=== PATIENT | female | born 1965 | race Caucasian/White ===

== ENCOUNTER 2016-12-08 19:29 | Emergency (ER) | payer MEDICAID ==
--- NOTE | 2016-12-08 20:44 | ER Document Report ---
HPI - HPI Patient complains to provider of: suture popped Onset: This afternoon Onset/Duration: Sudden Quality of pain: Achy Severity: Severe Pain Level: 5 Context: Patient presents to the emergency department with left palm pain. Patient reports she just had carpal tunnel surgery on Saturday. Today she tripped over her feet and landed on her out stretched palm. She is worried that she has popped a couple of stitches. Patient has full range of motion no weakness no active bleeding noted. She reports area was bleeding but has stopped. Associated Symptoms: None Exacerbated by: Denies Relieved by: Denies Similar symptoms previously: Yes Recently seen / treated by doctor: Yes - REPRODUCTIVE Reproductive: DENIES: : - DERM Skin Color: Normal, [place] Past Medical History - General Information source: Patient - Social History Smoking Status: Unknown if Ever Smoked Cigarette use (# per day): No Frequency of alcohol use: None Drug Abuse: None Lives with: Family Family History: Reviewed & Not Pertinent Patient has suicidal ideation: No Patient has homicidal ideation: No Renal/ Medical History: Denies: Hx Peritoneal Dialysis GI Medical History: Reports: Hx Gastroesophageal Reflux Disease Musculoskeltal Medical History: Reports Hx Muscle Spasm Past Surgical History: Reports: Hx Abdominal Surgery - lower intestine, Hx Hysterectomy, Hx Orthopedic Surgery - right knee/right hand - Immunizations Hx Diphtheria, Pertussis, Tetanus Vaccination: Yes Vertical Provider Document - CONSTITUTIONAL Agree With Documented VS: Yes Exam Limitations: No Limitations General Appearance: WD/WN, No Apparent Distress - INFECTION CONTROL TRAVEL OUTSIDE OF THE [place] IN LAST 30 DAYS: No - HEENT HEENT: Atraumatic, Normocephalic - NECK Neck: Supple - RESPIRATORY Respiratory: No Respiratory Distress O2 Sat by Pulse Oximetry: 96 - CARDIOVASCULAR Cardiovascular: Regular Rate - MUSCULOSKELETAL/EXTREMETIES Musculoskeletal/Extremeties: MAEW, FROM, Tender - Left palm tender to palpation recent surgical site noted. [address] with slight opening ~ 0.5-1mm proximal. no active bleeding, good supportability engineer - NEURO Level of Consciousness: Awake, Alert, Appropriate Motor/Sensory: No Motor Deficit - DERM Integumentary: Warm, Dry Course - Re-evaluation Re-evalutation: 12/08/16 Sutures seem to be intact but will place Steri-Strips for patient comfort. Patient was instructed on the importance of follow-up with her surgeon on [place]. She verbalized understanding. Patient has pain medication at home. Patient has full range of motion brisk cap refill site looks benign - Vital Signs Vital signs: Temp Pulse Resp BP Pulse Ox 98.0 F 78 19 111/70 96 12/08/16 20:00 12/08/16 20:00 12/08/16 20:00 12/08/16 20:00 12/08/16 20:00 Procedures - Laceration/Wound Repair Left palm Wound length (cm): 3 Wound's Depth, Shape: Superficial, Linear Laceration pre-procedure: Shur-Clens applied Wound Repaired With: Steri-strips Number of Sutures: 0 - 5 steri strips placed by ha reyes LPN Hands front picture: 1 - [address], slight opening noted 0.5-1 mm, no active bleeding, ecchymosis noted to entire palm. good supportability engineer, brisk cap refill Discharge - Discharge Clinical Impression: left palm injury, suture site reinforcement Condition: Stable Disposition: HOME, SELF-CARE Instructions: Care of Steri-Strip Closure ([facility]) Additional Instructions: *You have been treated for left palm injury, suture site reinforcement *Take your pain medication as prescribed *Monitor the site for signs of infection such as increasing pain, redness, swelling, warmth *Keep the area clean *Follow up with your surgeon on Saturday for recheck *Return to ED for signs of infection, worsening condition, changes, needs Referrals: THU SAMUEL PA-C [Primary Care Provider] - Follow up as needed
[2016-12-08 21:56] VITALS: BP 108/78
== END 2016-12-08 21:55 | disposition home or self-care (01) ==
LOC: ER 19:29
PROC: 0HQGXZZ Repair Left Hand Skin, External Approach (ICD-10-PCS; principal; 2016-12-08)
DX: S69.92XA Unspecified injury of left wrist, hand and finger(s), initial encounter (principal); W19.XXXA Unspecified fall, initial encounter
CPT/HCPCS: 99283

== ENCOUNTER 2017-01-01 10:12 | Inpatient (IN) | payer MEDICAID ==
[2016-12-24 13:33] LABS: HEMATOCRIT 40.3 % (36.0-47.0); HEMOGLOBIN 13.3 g/dL (12.0-15.5); HGB HCT DIFFERENCE -0.4; MEAN CORPUSCULAR HEMOGLOBIN 26.1 pg (27.0-33.4); MEAN CORPUSCULAR HGB CONC 32.9 g/dL (32.0-36.0); MEAN CORPUSCULAR VOLUME 79 fl (80-97); RED BLOOD COUNT 5.08 10^6/uL (3.72-5.28); RED CELL DISTRIBUTION WIDTH 15.9 % (11.5-14.0); WHITE BLOOD COUNT 8.3 10^3/uL (4.0-10.5)
[2016-12-24 13:56] LABS: BLOOD UREA NITROGEN 17 mg/dL (7-20); CALCIUM 10.2 mg/dL (8.4-10.2); CREATININE RESULT 0.78 mg/dL (0.52-1.25); GLUCOSE 117 mg/dL (75-110)
[2016-12-24 13:57] LABS: ALANINE AMINOTRANSFERASE 53 U/L (9-52); ALBUMIN 4.1 g/dL (3.5-5.0); ALKALINE PHOSPHATASE 155 U/L (38-126); ANION GAP 11 (5-19); ASPARTATE AMINO TRANSFERASE 32 U/L (14-36); BILIRUBIN,DIRECT 0.3 mg/dL (0.0-0.4); BILIRUBIN,TOTAL 0.8 mg/dL (0.2-1.3); CARBON DIOXIDE 31 mmol/L (22-30); CHLORIDE 99 mmol/L (98-107); POTASSIUM 4.7 mmol/L (3.6-5.0); SODIUM 141.1 mmol/L (137-145); TOTAL PROTEIN 7.3 g/dL (6.3-8.2)
--- NOTE | 2016-12-24 20:33 | EKG REPORT ---
SEVERITY:- NORMAL ECG - SINUS RHYTHM : Confirmed by: Taya Carmona 24-Dec-2016 20:32:01
[~2017-01-01 10:12] MED LIST: ACETAMINOPHEN 325 MG TABLET PO PRN; BUPIVACAINE HCL 0.25 % INJ/PF (2.5 MG/1 ML) 30 ML VIAL ONE; CIPROFLOXACIN 400 MG/D5W RTU 400 MG/200 ML RTUPB IV PRN; GLYCOPYRROLATE INJ 0.4 MG/2 ML VIAL ONE; LACTATED RINGERS 1000 ML IV PRN; LIDOCAINE 0.5% INJ-PF (5 MG/ML) 50 ML SDV SUBCUT PRN; LIDOCAINE 2% INJ-PF (20 MG/ML) 10 ML AMPUL ONE; METOCLOPRAMIDE HCL INJ/PF 10 MG/2 ML SDV ONE; NEOSTIGMINE METHYLSULFATE 10 MG/10 ML VIAL ONE; ONDANSETRON HCL INJ/PF 4 MG/2 ML SDV ONE; ROCURONIUM BROMIDE INJ 50 MG/5 ML VIAL IV ONE; SUCCINYLCHOLINE CHLORIDE INJ 200 MG/10 ML VIAL ONE
[2017-01-01] MEDS ORDERED: FENTANYL CITRATE INJ/PF 250 MCG/5 ML AMPULE ONE (13:46)
[2017-01-01] MEDS ORDERED: MORPHINE SULFATE 10 MG/ML INJ ONE (13:47)
[2017-01-01] MEDS ORDERED: ACETAMINOPHEN 100 ML IV ONE (13:47)
[2017-01-01] MEDS ORDERED: MIDAZOLAM 2 MG/2 ML INJ ONE (13:47)
[2017-01-01] MEDS ORDERED: PROPOFOL INJ 200 MG/20 ML VIAL IV ONE (13:47)
--- NOTE | 2017-01-01 16:21 | RADIOLOGY REPORT (SQ) ---
EXAM DESCRIPTION: CHOLANGIOGRAM OPERATIVE COMPLETED DATE/TIME: 01/01/2017 4:06 pm REASON FOR STUDY: LAPROSCOPIC CHOLANGIOGRAM K80.00 CALCULUS OF GALLBLADDER W ACUTE CHOLECYST W/O OB STRUC COMPARISON: None. FLUOROSCOPY TIME: 0.9 minutes Cine flouroscopic images saved to PACS. TECHNIQUE: Cinegraphic images were obtained from an intraoperative cholangiogram. LIMITATIONS: None. FINDINGS: There is opacification of the bile ducts, cystic duct remnants and second portion of the d uodenum without evidence of fixed filling defect or significant extravasation. IMPRESSION: INTRAOPERATIVE CHOLANGIOGRAM. COMMENT: Quality ID [id number]: Final reports for procedures using fluoroscopy that document radiation exp osure indices, or exposure time and number of fluorographic images (if radiation exposure indices are not available) TECHNICAL DOCUMENTATION: JOB ID: [id number] [employer]- All Rights Reserved
[2017-01-01 16:44] LABS: HEMATOCRIT 36.1 % (36.0-47.0); HEMOGLOBIN 11.9 g/dL (12.0-15.5); HGB HCT DIFFERENCE -0.4; MEAN CORPUSCULAR HEMOGLOBIN 26.1 pg (27.0-33.4); MEAN CORPUSCULAR VOLUME 79 fl (80-97); RED BLOOD COUNT 4.55 10^6/uL (3.72-5.28); WHITE BLOOD COUNT 7.3 10^3/uL (4.0-10.5)
[2017-01-01] MEDS: MORPHINE SULFATE 10 MG/ML INJ ONE ×2 (18:05→18:20)
[2017-01-01] MEDS ORDERED: MORPHINE SULFATE 10 MG/ML INJ IV PRN (18:36)
[2017-01-01] MEDS ORDERED: DEXTROSE 40% GEL 15 GM TUBE PO PRN ×2 (18:36)
[2017-01-01] MEDS ORDERED: DEXTROSE 50%-WATER 25 GM/50 ML DISP.SYRIN IV PRN ×2 (18:36)
[2017-01-01] MEDS ORDERED: GLUCAGON,HUMAN RECOMB 1 MG INJ SUBCUT PRN (18:36)
[2017-01-01] MEDS ORDERED: BACLOFEN 20 MG TABLET PO PRN (18:42)
[2017-01-01] MEDS ORDERED: PHARMACY COMMUNICATION ORDER MC NR (18:45)
[2017-01-01 21:04] LABS: ABSOLUTE LYMPHOCYTES (AUTO) 0.9 10^3/uL (0.5-4.7); ABSOLUTE MONOCYTES (AUTO) 0.4 10^3/uL (0.1-1.4); ABSOLUTE NEUT (AUTO) 9.1 10^3/uL (1.7-8.2); BASOPHILS % (AUTO) 0.3 % (0-2); EOSINOPHILS % (AUTO) 0.1 % (0-6); HEMOGLOBIN 11.9 g/dL (12.0-15.5); HGB HCT DIFFERENCE -1.3; MEAN CORPUSCULAR HEMOGLOBIN 25.6 pg (27.0-33.4); MEAN CORPUSCULAR HGB CONC 32.3 g/dL (32.0-36.0); MEAN CORPUSCULAR VOLUME 79 fl (80-97); MONOCYTES % (AUTO) 3.5 % (3-13); RED BLOOD COUNT 4.67 10^6/uL (3.72-5.28); RED CELL DISTRIBUTION WIDTH 15.9 % (11.5-14.0); SEGMENTED NEUTROPHILS % (AUTO) 87.1 % (42-78); WHITE BLOOD COUNT 10.5 10^3/uL (4.0-10.5)
--- NOTE | 2017-01-01 21:10 | PDOC PROGRESS REPORT ---
Subjective Progress Note for:: 01/01/17 Subjective:: Feels well other than pain at the right upper quadrant incision. No chest pain no shortness of breath. Physical Exam Vital Signs: Temp Pulse Resp BP Pulse Ox 98.2 F 69 18 138/77 H 92 01/01/17 19:20 01/01/17 19:20 01/01/17 19:20 01/01/17 19:20 01/01/17 19:20 Intake & Output 12/31/16 01/01/17 01/02/17 06:59 06:59 06:59 Intake Total 3550 Output Total 830 Balance 2720 Weight 158.9 kg General appearance: PRESENT: no acute distress, cooperative Respiratory exam: PRESENT: clear to auscultation yoshi Cardiovascular exam: PRESENT: RRR GI/Abdominal exam: PRESENT: other - Soft, nondistended, mild tenderness at the right upper quadrant without peritoneal signs. NG output is none. Results Laboratory Results: 01/01/17 20:45 01/01/17 10:35 01/01/17 01/01/17 01/01/17 10:35 16:25 16:30 WBC 7.3 RBC 4.55 Hgb 11.9 L Hct 36.1 MCV 79 L MCH 26.1 L MCHC 33.0 RDW 16.0 H Plt Count 191 Seg Neutrophils % Lymphocytes % Monocytes % Eosinophils % Basophils % Absolute Neutrophils Absolute Lymphocytes Absolute Monocytes Absolute Eosinophils Absolute Basophils Potassium 4.5 Blood Type O NEGATIVE Antibody Screen NEGATIVE 01/01/17 20:45 WBC 10.5 RBC 4.67 Hgb 11.9 L Hct 37.0 MCV 79 L MCH 25.6 L MCHC 32.3 RDW 15.9 H Plt Count 202 Seg Neutrophils % 87.1 H Lymphocytes % 9.0 L Monocytes % 3.5 Eosinophils % 0.1 Basophils % 0.3 Absolute Neutrophils 9.1 H Absolute Lymphocytes 0.9 Absolute Monocytes 0.4 Absolute Eosinophils 0.0 Absolute Basophils 0.0 Potassium Blood Type Antibody Screen Impressions: Cholangiogram 01/01/17 00:00 IMPRESSION: INTRAOPERATIVE CHOLANGIOGRAM. Assessment & Plan - Diagnosis (1) Cholecystitis Is this a current diagnosis for this admission?: YesPlan: Status post laparoscopic cholecystectomy converted to open cholecystectomy for perioperative bleed. Patient looks good postoperatively. DC NG tube. Will DC Kaplan catheter tomorrow morning. Change from morphine to Dilaudid for pain control. Will also add Toradol. Patient has no evidence of active bleeding and hemostasis was excellent at the end of the case. However will hold the Lovenox.
--- NOTE | 2017-01-01 21:18 | Operative Report ---
Operative Report DATE OF SURGERY: 01/01/17 PREOPERATIVE DIAGNOSIS: Chronic cholecystitis, cholelithiasis POSTOPERATIVE DIAGNOSIS: Chronic cholecystitis, cholelithiasis OPERATION: Attempted laparoscopic cholecystectomy, conversion to open cholecystectomy. Intraoperative cholangiogram SURGEON: NETTA CHATMAN ANESTHESIA: GA TISSUE REMOVED OR ALTERED: gallbladder COMPLICATIONS: Gallbladder bed bleed ESTIMATED BLOOD LOSS: 600 cc INTRAOPERATIVE FINDINGS: Contracted thickened wall gallbladder with large gallstones with indistinct plane between the gallbladder and the liver. Enlarged cystic duct but normal common bile and hepatic ducts with no obstructive stones. Free flow of contrast into the duodenum. PROCEDURE: Informed consent was obtained. Patient was brought to the operating room placed operating table in supine position. After satisfactory induction of general anesthesia, patient's abdomen was prepped and draped in usual sterile fashion. A supraumbilical midline incision was made and dissection carried down thru the fascia and the peritoneal cavity entered without difficulty. Hernandez trocar was inserted. Pneumoperitoneum produced good patient toleration. 5 mm trocar was placed in the subxiphoid location.Two 5 mm trochars were placed in the right subcostal location. The gallbladder appeared contracted and wall appeared thickened. Gallbladder had palpable large stones. The gallbladder was grasped and retracted anteriorly and cephalad. The infundibulum of the gallbladder was grasped and retracted laterally and inferiorly thus exposing a scarred calot's triangle. The lymphatics associated with an enlarged close node was taken by clipping and dividing. There was adhesion between the midportion of the gallbladder and the liver that was inflamed and thickened. this area was attempted to be taken down with electrocautery but there was some bleeding requiring clip placement to control the bleeding. The cystic duct gallbladder junction was clearly identified. The cystic duct appeared dilated. Cystic artery was clearly identified. The cystic duct was partially transected near the gallbladder and a cholangiocatheter was inserted and clipped in place. Intraoperative cholangiography was performed which demonstrated normal-appearing common bile duct, common hepatic duct, right and left hepatic ducts. There was free flow of contrast into the duodenum. The cholangiocatheter was removed. The cystic duct was clipped and divided. Cystic artery was likewise taken. There was a posterior branch of the cystic artery which was also clipped and divided. The gallbladder was taken off the gallbladder bed using the hook electrocautery technique. The plane between the gallbladder and the liver was indistinct making this portion of the procedure difficult. At the top of the gallbladder the inflammatory process appeared to be worse. The gallbladder was almost completely taken off the liver when I encountered brisk venous bleeding from the gallbladder bed. Initial attempt at control with compression yielded only partial control. There appeared to be a visible vein with brisk bleeding and attempt at control with surgical clips failed. I felt that electrocautery could potentially make bleeding worse. The gallbladder was stuffed at the gallbladder bed to tamponade the bleeding and the case was converted to an open procedure. A right subcostal incision was made and dissection carried down and the peritoneal cavity was entered without difficulty. Lap sponges were placed at the gallbladder bed to control the bleed. Bookwalter retractor was used. Trochars were all removed. After appropriate positioning of the Bookwalter to obtain optimal exposure, the surgical sponges were removed and the gallbladder bed was inspected. There was an exposed vein in the superficial liver parenchyma at the gallbladder bed with brisk bleeding. Compression was used to control the bleed and Prolene sutures were used to ligate the bleeding vein with resultant control of the bleed. There was slight oozing at the site that was controlled with Surgicel and compression. The gallbladder was detached from the gallbladder bed and submitted to pathology. At the end of the case there was no evidence of active bleeding. Sponge, needle and instrument counts were all correct. Blood clots were evacuated. hemostasis appeared excellent. The fascia was closed with running PDS sutures in 2 layers. Skin was closed with aneta. The Hernandez trocar site fascial defect was closed with interrupted Vicryl sutures. All skin incisions were closed with aneta. Marcaine was injected at the incision sites. Patient tolerated procedure well and was taken to the recovery area in stable condition.
[2017-01-01] MEDS: GABAPENTIN 300 MG CAPSULE PO SCH (21:50)
[2017-01-01] MEDS: TRAMADOL HCL 50 MG TABLET PO SCH (21:50)
[2017-01-01] MEDS ORDERED: DULOXETINE HCL 30 MG CAPSULE.DR PO PRN (22:00)
[2017-01-01] MEDS: ONDANSETRON HCL INJ/PF 4 MG/2 ML SDV IV PRN (22:01)
[2017-01-02] MEDS: NORMAL SALINE 1000 ML 1,000 ML IV PRN ×2 (00:31→22:06)
[2017-01-02] MEDS: HYDROMORPHONE HCL INJ/PF 2 MG/ML AMPULE IV PRN ×4 (00:31→22:06)
[2017-01-02 07:14] LABS: HEMATOCRIT 34.7 % (36.0-47.0); HEMOGLOBIN 11.6 g/dL (12.0-15.5); HGB HCT DIFFERENCE 0.1; MEAN CORPUSCULAR HEMOGLOBIN 26.3 pg (27.0-33.4); MEAN CORPUSCULAR HGB CONC 33.4 g/dL (32.0-36.0); MEAN CORPUSCULAR VOLUME 79 fl (80-97); RED CELL DISTRIBUTION WIDTH 15.8 % (11.5-14.0); WHITE BLOOD COUNT 9.1 10^3/uL (4.0-10.5)
[2017-01-02 07:31] LABS: ALANINE AMINOTRANSFERASE 75 U/L (9-52); ALKALINE PHOSPHATASE 106 U/L (38-126); ANION GAP 8 (5-19); ASPARTATE AMINO TRANSFERASE 63 U/L (14-36); BILIRUBIN,DIRECT 0.3 mg/dL (0.0-0.4); BILIRUBIN,TOTAL 0.8 mg/dL (0.2-1.3); BLOOD UREA NITROGEN 13 mg/dL (7-20); CALCIUM 8.9 mg/dL (8.4-10.2); CARBON DIOXIDE 26 mmol/L (22-30); CHLORIDE 104 mmol/L (98-107); CREATININE RESULT 0.62 mg/dL (0.52-1.25); GLUCOSE 136 mg/dL (75-110); POTASSIUM 4.8 mmol/L (3.6-5.0); TOTAL PROTEIN 5.5 g/dL (6.3-8.2)
[2017-01-02] MEDS: FUROSEMIDE 20 MG TABLET PO SCH (08:01)
[2017-01-02] MEDS: KETOROLAC TROMETHAMINE INJ/PF 30 MG/1 ML SDV IV PRN (08:01)
[2017-01-02] MEDS: ONDANSETRON HCL INJ/PF 4 MG/2 ML SDV IV PRN ×3 (08:16→18:33)
--- NOTE | 2017-01-02 09:28 | PDOC PROGRESS REPORT ---
Subjective Progress Note for:: 01/02/17 Subjective:: Feels well. Pain better. Physical Exam Vital Signs: Temp Pulse Resp BP Pulse Ox 98.4 F 81 18 113/59 L 99 01/02/17 08:00 01/02/17 08:00 01/02/17 08:00 01/02/17 08:00 01/02/17 08:00 Intake & Output 01/01/17 01/02/17 01/03/17 06:59 06:59 06:59 Intake Total 4803 Output Total 1630 Balance 3173 Weight 158.9 kg General appearance: PRESENT: no acute distress, cooperative Respiratory exam: PRESENT: clear to auscultation yoshi Cardiovascular exam: PRESENT: RRR GI/Abdominal exam: PRESENT: other - Soft, nondistended, mild tenderness along the incision site. 5 mm trocar site with some serous drainage. Extremities exam: PRESENT: other - No swelling and no tenderness Neurological exam: PRESENT: alert, awake Results Laboratory Results: 01/02/17 06:34 01/02/17 06:34 01/01/17 01/01/17 01/01/17 10:35 16:25 16:30 WBC 7.3 RBC 4.55 Hgb 11.9 L Hct 36.1 MCV 79 L MCH 26.1 L MCHC 33.0 RDW 16.0 H Plt Count 191 Seg Neutrophils % Lymphocytes % Monocytes % Eosinophils % Basophils % Absolute Neutrophils Absolute Lymphocytes Absolute Monocytes Absolute Eosinophils Absolute Basophils Sodium Potassium 4.5 Chloride Carbon Dioxide Anion Gap BUN Creatinine Est GFR ( Amer) Est GFR (Non-Af Amer) Glucose Calcium Total Bilirubin AST ALT Alkaline Phosphatase Total Protein Albumin Blood Type O NEGATIVE Antibody Screen NEGATIVE 01/01/17 01/02/17 01/02/17 20:45 06:34 06:34 WBC 10.5 9.1 RBC 4.67 4.40 Hgb 11.9 L 11.6 L Hct 37.0 34.7 L MCV 79 L 79 L MCH 25.6 L 26.3 L MCHC 32.3 33.4 RDW 15.9 H 15.8 H Plt Count 202 237 Seg Neutrophils % 87.1 H Lymphocytes % 9.0 L Monocytes % 3.5 Eosinophils % 0.1 Basophils % 0.3 Absolute Neutrophils 9.1 H Absolute Lymphocytes 0.9 Absolute Monocytes 0.4 Absolute Eosinophils 0.0 Absolute Basophils 0.0 Sodium 138.0 Potassium 4.8 Chloride 104 Carbon Dioxide 26 Anion Gap 8 BUN 13 Creatinine 0.62 Est GFR ( Amer) > 60 Est GFR (Non-Af Amer) > 60 Glucose 136 H Calcium 8.9 Total Bilirubin 0.8 AST 63 H ALT 75 H Alkaline Phosphatase 106 Total Protein 5.5 L Albumin 3.0 L Blood Type Antibody Screen Impressions: Cholangiogram 01/01/17 00:00 IMPRESSION: INTRAOPERATIVE CHOLANGIOGRAM. Assessment & Plan - Diagnosis (1) Cholecystitis Is this a current diagnosis for this admission?: YesPlan: Status post laparoscopic cholecystectomy converted to open cholecystectomy for perioperative bleed. Patient looks good postoperatively. DC Kaplan catheter. Ambulate patient. Await bowel function.
[2017-01-02] MEDS ORDERED: (PENDING PHARMACY ID) (Esomeprazole Magnesium [Nexium] 20 MG) PO SCH (10:00)
[2017-01-02] MEDS: CIPROFLOXACIN 400 MG/D5W RTU 200 ML IV SCH ×2 (10:32→22:06)
[2017-01-02] MEDS: LANSOPRAZOLE 15 MG TAB.RAP.DR PO SCH (10:32)
[2017-01-02] MEDS: ASPIRIN 81 MG TABLET, ENT COATED PO SCH (10:32)
[2017-01-02] MEDS: TRAMADOL HCL 50 MG TABLET PO SCH ×4 (10:32→22:07)
[2017-01-02] MEDS: GABAPENTIN 300 MG CAPSULE PO SCH ×4 (10:33→22:07)
--- NOTE | 2017-01-02 17:04 | PDOC PROGRESS REPORT ---
Subjective Progress Note for:: 01/02/17 Subjective:: had nausea and did not ambulate today. d/w pt placing her on lovenox but she declines. But will try ambulation with assist. Physical Exam Vital Signs: Temp Pulse Resp BP Pulse Ox 98.4 F 81 18 113/59 L 99 01/02/17 08:00 01/02/17 08:00 01/02/17 08:00 01/02/17 08:00 01/02/17 08:00 Intake & Output 01/01/17 01/02/17 01/03/17 06:59 06:59 06:59 Intake Total 4803 Output Total 1630 Balance 3173 Weight 158.9 kg General appearance: PRESENT: no acute distress, cooperative Cardiovascular exam: PRESENT: RRR GI/Abdominal exam: PRESENT: other - soft, nd, ruq tenderness without peritoneal signs. drainage from lateral trocar site less Results Laboratory Results: 01/02/17 06:34 01/02/17 06:34 01/01/17 01/01/17 01/01/17 16:25 16:30 20:45 WBC 7.3 10.5 RBC 4.55 4.67 Hgb 11.9 L 11.9 L Hct 36.1 37.0 MCV 79 L 79 L MCH 26.1 L 25.6 L MCHC 33.0 32.3 RDW 16.0 H 15.9 H Plt Count 191 202 Seg Neutrophils % 87.1 H Lymphocytes % 9.0 L Monocytes % 3.5 Eosinophils % 0.1 Basophils % 0.3 Absolute Neutrophils 9.1 H Absolute Lymphocytes 0.9 Absolute Monocytes 0.4 Absolute Eosinophils 0.0 Absolute Basophils 0.0 Sodium Potassium Chloride Carbon Dioxide Anion Gap BUN Creatinine Est GFR ( Amer) Est GFR (Non-Af Amer) Glucose Calcium Total Bilirubin AST ALT Alkaline Phosphatase Total Protein Albumin Blood Type O NEGATIVE Antibody Screen NEGATIVE 01/02/17 01/02/17 06:34 06:34 WBC 9.1 RBC 4.40 Hgb 11.6 L Hct 34.7 L MCV 79 L MCH 26.3 L MCHC 33.4 RDW 15.8 H Plt Count 237 Seg Neutrophils % Lymphocytes % Monocytes % Eosinophils % Basophils % Absolute Neutrophils Absolute Lymphocytes Absolute Monocytes Absolute Eosinophils Absolute Basophils Sodium 138.0 Potassium 4.8 Chloride 104 Carbon Dioxide 26 Anion Gap 8 BUN 13 Creatinine 0.62 Est GFR ( Amer) > 60 Est GFR (Non-Af Amer) > 60 Glucose 136 H Calcium 8.9 Total Bilirubin 0.8 AST 63 H ALT 75 H Alkaline Phosphatase 106 Total Protein 5.5 L Albumin 3.0 L Blood Type Antibody Screen Impressions: Cholangiogram 01/01/17 00:00 IMPRESSION: INTRAOPERATIVE CHOLANGIOGRAM. Assessment & Plan - Diagnosis (1) Cholecystitis Is this a current diagnosis for this admission?: YesPlan: Status post laparoscopic cholecystectomy converted to open cholecystectomy for perioperative bleed.looks ok but must ambulate. will try again this evening. await bowel function.
[2017-01-03] MEDS: ONDANSETRON HCL INJ/PF 4 MG/2 ML SDV IV PRN ×4 (00:37→15:54)
[2017-01-03] MEDS: KETOROLAC TROMETHAMINE INJ/PF 30 MG/1 ML SDV IV PRN ×2 (07:45→14:31)
[2017-01-03] MEDS: FUROSEMIDE 20 MG TABLET PO SCH (07:45)
[2017-01-03] MEDS: HYDROMORPHONE HCL INJ/PF 2 MG/ML AMPULE IV PRN ×3 (08:04→15:54)
--- NOTE | 2017-01-03 08:34 | PDOC PROGRESS REPORT ---
Subjective Progress Note for:: 01/03/17 Subjective:: Feels better. Passing flatus. Hungry. Physical Exam Vital Signs: Temp Pulse Resp BP Pulse Ox 98.2 F 82 16 118/57 L 100 01/03/17 07:41 01/03/17 07:41 01/03/17 07:41 01/03/17 07:41 01/03/17 07:41 Intake & Output 01/02/17 01/03/17 01/04/17 06:59 06:59 06:59 Intake Total 4803 2361 Output Total 1630 950 Balance 3173 1411 Weight 158.9 kg 158.8 kg General appearance: PRESENT: no acute distress, cooperative Respiratory exam: PRESENT: clear to auscultation yoshi Cardiovascular exam: PRESENT: RRR GI/Abdominal exam: PRESENT: other - Soft, nondistended, mild right upper quadrant abdominal tenderness but improved from yesterday. Results Laboratory Results: 01/02/17 06:34 01/02/17 06:34 Impressions: Cholangiogram 01/01/17 00:00 IMPRESSION: INTRAOPERATIVE CHOLANGIOGRAM. Assessment & Plan - Diagnosis (1) Cholecystitis Is this a current diagnosis for this admission?: YesPlan: Status post laparoscopic cholecystectomy converted to open cholecystectomy for perioperative bleed.looks ok patient feels ready to ambulate today. When ambulating well will start clear liquids. Possible discharge home tomorrow.
[2017-01-03] MEDS: DULOXETINE HCL 30 MG CAPSULE.DR PO SCH (09:48)
[2017-01-03] MEDS: ASPIRIN 81 MG TABLET, ENT COATED PO SCH (09:49)
[2017-01-03] MEDS: TRAMADOL HCL 50 MG TABLET PO SCH ×4 (09:49→21:51)
[2017-01-03] MEDS: CIPROFLOXACIN 400 MG/D5W RTU 200 ML IV SCH ×2 (09:50→21:51)
[2017-01-03] MEDS: LANSOPRAZOLE 15 MG TAB.RAP.DR PO SCH (09:50)
[2017-01-03] MEDS: GABAPENTIN 300 MG CAPSULE PO SCH ×4 (09:50→21:51)
[2017-01-03] MEDS: NORMAL SALINE 1000 ML 1,000 ML IV PRN (14:43)
[2017-01-04] MEDS: HYDROMORPHONE HCL INJ/PF 2 MG/ML AMPULE IV PRN ×2 (03:51→14:50)
[2017-01-04] MEDS ORDERED: OXYCODONE-ACETAMINOPHEN 5-325 MG TABLET PO PRN (08:33)
--- NOTE | 2017-01-04 08:39 | PDOC PROGRESS REPORT ---
Subjective Progress Note for:: 01/04/17 Subjective:: Feels much better. Abdominal pain markedly improved. Ambulated well yesterday. Tolerating liquids. Patient wants to stay till tomorrow however for intermittent IV pain medication for pain control. Physical Exam Vital Signs: Temp Pulse Resp BP Pulse Ox 98.6 F 80 16 120/69 90 L 01/03/17 23:26 01/03/17 23:26 01/03/17 23:26 01/03/17 23:26 01/03/17 23:26 Intake & Output 01/03/17 01/04/17 01/05/17 06:59 06:59 06:59 Intake Total 2361 1650 Output Total 950 Balance 1411 1650 Weight 158.8 kg 160.1 kg General appearance: PRESENT: no acute distress, cooperative Respiratory exam: PRESENT: clear to auscultation yoshi Cardiovascular exam: PRESENT: RRR GI/Abdominal exam: PRESENT: other - Soft, nondistended, minimal tenderness in the right upper quadrant. Wound clean dry and intact with slight bruising. Results Laboratory Results: 01/02/17 06:34 01/02/17 06:34 Impressions: Cholangiogram 01/01/17 00:00 IMPRESSION: INTRAOPERATIVE CHOLANGIOGRAM. Assessment & Plan - Diagnosis (1) Cholecystitis Is this a current diagnosis for this admission?: YesPlan: Status post laparoscopic cholecystectomy converted to open cholecystectomy for perioperative bleed. Patient looks good. Will advance diet. Try Percocet for pain with Dilaudid for breakthrough pain. Probable discharge tomorrow. Continue to encourage ambulation.
[2017-01-04] MEDS: TRAMADOL HCL 50 MG TABLET PO SCH ×4 (09:09→21:34)
[2017-01-04] MEDS: FUROSEMIDE 20 MG TABLET PO SCH (09:09)
[2017-01-04] MEDS: GABAPENTIN 300 MG CAPSULE PO SCH ×4 (09:09→21:34)
[2017-01-04] MEDS: LANSOPRAZOLE 15 MG TAB.RAP.DR PO SCH (09:09)
[2017-01-04] MEDS: CIPROFLOXACIN HCL 500 MG TABLET PO SCH ×2 (09:09→21:34)
[2017-01-04] MEDS: ASPIRIN 81 MG TABLET, ENT COATED PO SCH (09:10)
[2017-01-04] MEDS: DULOXETINE HCL 30 MG CAPSULE.DR PO SCH (09:10)
[2017-01-05 10:17] VITALS: BP 109/53
[2017-01-05] MEDS: GABAPENTIN 300 MG CAPSULE PO SCH (10:23)
[2017-01-05] MEDS: FUROSEMIDE 20 MG TABLET PO SCH (10:24)
[2017-01-05] MEDS: CIPROFLOXACIN HCL 500 MG TABLET PO SCH (10:24)
[2017-01-05] MEDS: TRAMADOL HCL 50 MG TABLET PO SCH (10:24)
[2017-01-05] MEDS: ASPIRIN 81 MG TABLET, ENT COATED PO SCH (10:24)
[2017-01-05] MEDS: LANSOPRAZOLE 15 MG TAB.RAP.DR PO SCH (10:24)
[2017-01-05] MEDS: DULOXETINE HCL 30 MG CAPSULE.DR PO SCH (10:25)
--- NOTE | 2017-01-05 12:23 | DISCHARGE SUMMARY E ---
Discharge Summary NAME: SILKE MANN : 1965 AGE: 51Y ADMITTED: 01/01/2017 DISCHARGED: 01/05/2017 SUMMARY OF HOSPITALIZATION: Patient is a 51-year-old female who was brought to the hospital, and underwent laparoscopic conversion to open cholecystectomy by Dr. Jai Almanza. She had an intraoperative cholangiogram, which was unremarkable, and interpreted as normal filling of the biliary tree with no intraluminal defects or leak. Patient tolerated the procedure well. She had an uneventful postoperative course. She was somewhat slow to mobilize. There were no postoperative complications, however. By the fourth postoperative day she was felt to be ready for discharge home. FINAL DIAGNOSIS: Symptomatic cholelithiasis with cholecystitis, status post laparoscopic conversion to open cholecystectomy by Dr. Roderick Almanza. DISPOSITION: Patient will be discharged home in care of family. Follow up with Dr. Almanza in approximately 1 week for staple removal. Prescription for Percocet provided. She will take a stool softener and resume her preadmission medications. DICTATING PHYSICIAN: SOHAIL RUEDA M.D. [id number] Y#: [id number] ID: [id number] JOB#: [id number] ACCT: [id number] cc:Avelino ANGELO M.D. >
== END 2017-01-05 13:15 | disposition home or self-care (01) | DRG 415 ==
LOC: OROUT 10:12 → 5 12:55
PROVIDERS: ADMIT Surgery; ATTEND Surgery
PROC: 0FJ44ZZ Inspection of Gallbladder, Percutaneous Endoscopic Approach (ICD-10-PCS; 2017-01-01)
PROC: BF0C1ZZ Plain Radiography of Hepatobiliary System, All using Low Osmolar Contrast (ICD-10-PCS; 2017-01-01)
PROC: 0FN40ZZ Release Gallbladder, Open Approach (ICD-10-PCS; 2017-01-01)
PROC: 0D9670Z Drainage of Stomach with Drainage Device, Via Natural or Artificial Opening (ICD-10-PCS; 2017-01-01)
PROC: 0FT40ZZ Resection of Gallbladder, Open Approach (ICD-10-PCS; principal; 2017-01-01 13:00)
DX: K80.10 Calculus of gallbladder with chronic cholecystitis without obstruction (principal); N39.0 Urinary tract infection, site not specified; K91.62 Intraoperative hemorrhage and hematoma of a digestive system organ or structure complicating other procedure; Z68.43 Body mass index [BMI] 50.0-59.9, adult; I25.10 Atherosclerotic heart disease of native coronary artery without angina pectoris; M19.90 Unspecified osteoarthritis, unspecified site; M79.7 Fibromyalgia; G47.30 Sleep apnea, unspecified; K58.9 Irritable bowel syndrome, unspecified; M51.36 Other intervertebral disc degeneration, lumbar region; E66.9 Obesity, unspecified; K82.8 Other specified diseases of gallbladder; Y83.9 Surgical procedure, unspecified as the cause of abnormal reaction of the patient, or of later complication, without mention of misadventure at the time of the procedure; Z88.3 Allergy status to other anti-infective agents; Z88.1 Allergy status to other antibiotic agents; Z88.8 Allergy status to other drugs, medicaments and biological substances; Z88.6 Allergy status to analgesic agent; Z91.038 Other insect allergy status; Z99.81 Dependence on supplemental oxygen; Z85.41 Personal history of malignant neoplasm of cervix uteri; Z87.891 Personal history of nicotine dependence; Z79.82 Long term (current) use of aspirin; Z79.899 Other long term (current) drug therapy
CPT/HCPCS: 00790; 36415; 74300; 80053; 84132; 85025; 85027; 86850; 86900; 86901; 86920; 88304; 93005; 93010; J0131; J0330; J0744; J1170; J1885; J2250; J2270; J2405; J2704; J2765; J3010; J3490; J7030; Q9967

== ENCOUNTER → 2018-05-22 | Outpatient (CLI) | payer MEDICAID ==
[~2018-05-22] MED LIST changes: -ACETAMINOPHEN 325 MG TABLET PO PRN; -BUPIVACAINE HCL 0.25 % INJ/PF (2.5 MG/1 ML) 30 ML VIAL ONE; -CIPROFLOXACIN 400 MG/D5W RTU 400 MG/200 ML RTUPB IV PRN; -GLYCOPYRROLATE INJ 0.4 MG/2 ML VIAL ONE; -LACTATED RINGERS 1000 ML IV PRN; -LIDOCAINE 0.5% INJ-PF (5 MG/ML) 50 ML SDV SUBCUT PRN; -LIDOCAINE 2% INJ-PF (20 MG/ML) 10 ML AMPUL ONE; -METOCLOPRAMIDE HCL INJ/PF 10 MG/2 ML SDV ONE; -NEOSTIGMINE METHYLSULFATE 10 MG/10 ML VIAL ONE; -ONDANSETRON HCL INJ/PF 4 MG/2 ML SDV ONE; +REGADENOSON INJ 0.4 MG/5 ML DISP.SYRIN IV ONE; -ROCURONIUM BROMIDE INJ 50 MG/5 ML VIAL IV ONE; -SUCCINYLCHOLINE CHLORIDE INJ 200 MG/10 ML VIAL ONE
--- NOTE | 2018-05-23 12:18 | DRAGON STRESS TEST REPORT ---
INTRAVENOUS LEXISCAN CARDIOLITE STRESS TEST USING SINGLE PHOTON EMMISION COMPUTERIZED TOMOGRAPHIC. DATE OF PROCEDURE: May 23, 2018, INDICATION : Chest pain CARDIAC RISK FACTORS: Family history of CAD RESTING EKG: Sinus rhythm, no baseline ST-T wave changes noted STRESS EKG: No significant ST segment changes noted with LexiScan bolus REASON FOR TERMINATION: Protocol. PROCEDURE REPORT: Baseline heart rate 77 beats per minute with blood pressure of 118/78. Patient had no significant complaints. Patient was bolused with Lexiscan 0.4 mg intravenously followed by saline bolus. Heart rate at 2 minutes post bolus 93 with a blood pressure of 129/68. 3 minutes post bolus heart rate 92 with blood pressure of 120/71. No significant EKG changes were noted. Patient had no significant complaints during the procedure or postprocedure. CONCLUSIONS: Normal EKG and hemodynamic response to IV LexiScan. NUCLEAR DATA: At rest the patient was given 39.4 millicuries of technetium 99 sestamibi injected intravenously. As per protocol rest gated SPECT images were obtained. On day of stress test, the patient was given intravenous LexiScan at a dose of 0.4 mg in 5 mL intravenously, followed by flush with normal saline. Subsequently the stress dose of 40.1 millicuries of technetium 99 sestamibi was injected intravenously. As per protocol stress gated images were obtained. NUCLEAR INTERPRETATION: Both raw and processed data were used for interpretation. Visual, qualitative, computer-generated quantitative data was used. There was good myocardial uptake of technetium compound. Motion artifact and soft tissue attenuations were noted. Increased visceral uptake was noted. No definitive areas of transient perfusion defect noted except for a small area of mild decreased uptake in the mid anterior wall, felt to be related to differences in breast attenuation artifact, however cannot entirely ruled out a small area of mild ischemia. SDS 2, No definitive areas of fixed perfusion defect or scars noted. EKG gated imaging showed LV EF at 67 %, rest and stress gated EF similar visually. T. I D. ratio was 1.07. Lung heart ratio noted to be within normal limits 0.31. No significant extracardiac and abnormal radiotracer activities were noted. RV free wall uptake was noted to be WNL. IMPRESSION: Also refer to comments under nuclear interpretation. Also test results needs to be interpreted in the context of pretest probability. 1. No definitive areas of transient perfusion defect noted except for a small area of mild decreased uptake in the mid anterior wall, felt to be related to differences in breast attenuation artifact, however cannot entirely ruled out a small area of mild ischemia. SDS 2, 2. There is no definitive scintigraphic evidence of myocardial infarction/scar. 3. EKG gated imaging shows left ventricular ejection fraction of approx. 67 %. 4. Clinical correlation requested as worse disease and or balanced ischemia could be missed. In approximately 10% of the cases Lexiscan may not cause adequate vasodilatory stress. RECOMMENDATIONS: Aggressive risk factor modification and medical management. Further evaluation may be needed if continued symptoms or other high risk indicators are noted on clinical evaluation. May consider stress echo if patient has satisfactory echo window and is able to walk on the treadmill. Close cardiology follow-up is also recommended. Clinical correlation with echocardiogram derived ejection fraction. Inability to exercise by itself can lead to increased cardiovascular event risks. Consider cardiology consultation and or follow-up if clinically indicated. I am available for cardiology evaluation and consultation if requested by the truck driver heavy, unless patient already has a statistical geneticist. Dr. Juan Manuel Carmona. MRCP Board certified in cardiology and sleep medicine. Board certified in nuclear cardiology, adult echocardiography. CHRISTINE
== END ==
LOC: RAD 07:31
PROVIDERS: ATTEND Internal Medicine Cardiovascular Disease
DX: R07.9 Chest pain, unspecified (principal)
CPT/HCPCS: 93017; 78452; A9500; J2785; Q9969

== ENCOUNTER → 2019-01-08 | Outpatient (CLI) | payer MEDICAID ==
--- NOTE | 2019-01-08 16:12 | WOMENS IMAGING REPORT ---
EXAM DESCRIPTION: 3D SCREENING MAMMO BILAT COMPLETED DATE/TIME: 01/08/2019 11:48 am REASON FOR STUDY: Z12.31 ROUTINE 3D BILATERAL SCREENING Z12.31 ENCNTR SCREEN MAMMOGRAM FOR MALIGNAN T NEOPLASM OF ARIS COMPARISON: 2014 EXAM PARAMETERS: Views: Standard craniocaudal and mediolateral oblique views of each breast recorded using digital acquisition and breast tomosynthesis. Read with the assistance of CAD. .[facility] - [employer] Laborer Version 9.2 LIMITATIONS: None. FINDINGS: No suspicious masses, suspicious calcifications or architectural distortion. No areas of c oncern. IMPRESSION: Assessment: Negative MAMMOGRAM. BIRADS 1. BREAST DENSITY: a. The breasts are almost entirely fatty. BIRAD: 1 NEGATIVE RECOMMENDATION: ROUTINE SCREENING COMMENT: The patient has been notified of the results by letter per MQSA requirements. Additional no tification policies are in place for contacting patient with suspicious or incomplete findings. Quality ID #225: The [employer] recommends an annual screening mammogram for women aged 40 years or over. This facility utilizes a reminder system to ensure that all patients receive reminder letters, and/or direct phone calls for appointments. This includes reminders for routine scr eening mammograms, diagnostic mammograms, or other Breast Imaging Interventions when appropriate. Th is patient will be placed in the appropriate reminder system. TECHNICAL DOCUMENTATION: FINDING NUMBER: (1) ASSESSMENT: (1) JOB ID: [id number] [employer]- All Rights Reserved Reading location - IP/workstation name: [email or web address]
== END ==
LOC: WI 11:19
PROVIDERS: ATTEND Physician Assistant
DX: Z12.31 Encounter for screening mammogram for malignant neoplasm of breast (principal)
CPT/HCPCS: 77063; 77067

== ENCOUNTER 2019-08-17 07:20 | Day surgery (SDC) | payer MEDICAID ==
[2019-08-17] MEDS ORDERED: PROPOFOL INJ 200 MG/20 ML VIAL IV ONE ×2 (07:44→10:20)
[2019-08-17 10:21] VITALS: BP 148/64
--- NOTE | 2019-08-17 11:55 | Operative Report ---
Operative Report DATE OF SURGERY: 08/17/19 Operative Report: The risk, benefits and alternatives of the procedure including the risk of bleeding, perforation requiring surgery have been explained to the patient in detail and informed consent has been obtained. Patient is placed in a left, lateral decubital position. Timeout was called. Propofol medication is administered. Rectal examination is done which did not reveal any masses, tears or fissures. An Olympus videoscope was introduced into the patient's rectum. Scope was then carefully advanced all the way to the cecum. Cecum was identified by the usual anatomical landmarks including the ileocecal valve as well as the appendiceal office. Photodocumentation is obtained. Scope was then sequentially pulled back via the various segments of the colon including the ascending colon, hepatic flexure, transverse colon, splenic flexure, descending colon finding to the rectosigmoid portions of the colon. Retroflexion maneuvers performed. The risks benefits and alternatives of the procedure explained to the patient in detail and informed consent is obtained.A GIF Olympus video scope was inserted into the patient's mouth and hypopharynx, the esophagus is identified intubated and insufflated, the scope was then advanced through the esophagus stomach and duodenum ,retroflexion maneuver is done, the esophagus stomach and first and second portions of the duodenum examined. PREOPERATIVE DIAGNOSIS: Iron deficiency anemia, change in bowel habits POSTOPERATIVE DIAGNOSIS: Gastritis status post biopsy. Inadequate prep in the colon. Right side colon inflammation status post biopsy. Colonoscopy completed to the cecum. No blood loss noted OPERATION: Colonoscopy with biopsy. EGD with biopsy SURGEON: ANDREEA PILLAI ANESTHESIA: LMAC TISSUE REMOVED OR ALTERED: As noted above. COMPLICATIONS: None. ESTIMATED BLOOD LOSS: None. INTRAOPERATIVE FINDINGS: As noted above. PROCEDURE: Patient tolerated the procedure well. No immediate postprocedure complications are noted. Patient is discharged in good condition. Discharge date 08/17/2019. Discharge diet: Regular. Discharge activity: Regular. 2 to 3-week follow-up to discuss findings. Patient is instructed to call the office or proceed to the emergency room should there be any further problems or questions. Wait on the pathology.
== END 2019-08-17 10:15 | disposition home or self-care (01) ==
LOC: END 07:20
PROVIDERS: ATTEND Internal Medicine Gastroenterology
DX: K29.50 Unspecified chronic gastritis without bleeding (principal); K52.9 Noninfective gastroenteritis and colitis, unspecified; D50.9 Iron deficiency anemia, unspecified; Z85.41 Personal history of malignant neoplasm of cervix uteri; Z79.899 Other long term (current) drug therapy; I50.9 Heart failure, unspecified; I20.9 Angina pectoris, unspecified; E66.9 Obesity, unspecified; Z68.43 Body mass index [BMI] 50.0-59.9, adult; G40.909 Epilepsy, unspecified, not intractable, without status epilepticus
CPT/HCPCS: 43239; 45380; 88342 ×2; 88305 ×2; 00813; J2704; 813

== ENCOUNTER → 2019-10-12 | Outpatient (CLI) | payer MEDICAID ==
--- NOTE | 2019-10-12 10:13 | RADIOLOGY REPORT (SQ) ---
EXAM DESCRIPTION: CT ABD/PELVIS WITH IV ORAL COMPLETED DATE/TIME: 10/12/2019 9:39 am REASON FOR STUDY: ABD PAIN (R10.9), UMBILICAL HERNIA (K42.9) K42.9 UMBILICAL HERNIA WITHOUT OBSTRUC TION OR GANGRENE R10.9 UNSPECIFIED ABDOMINAL PAIN COMPARISON: None. TECHNIQUE: CT scan of the abdomen and pelvis performed using helical scanning technique with dynamic intravenous contrast injection. No oral contrast. Images reviewed with lung, soft tissue, and bone windows. Reconstructed coronal and sagittal MPR images reviewed. Delayed images for evaluation of the urinary system also acquired. All images stored on PACS. All CT scanners at this facility use dose modulation, iterative reconstruction, and/or weight based d osing when appropriate to reduce radiation dose to as low as reasonably achievable (ALARA). [facility]: Dose Right [facility]: CareDose [facility]: Dose Right [facility]: Teradose 4D [facility]: [email or web address] CONTRAST TYPE AND DOSE: Contrast/concentration: Isovue 350.00 mg/ml; Total Contrast Delivered: 100.0 ml; Total Saline Delivered: 72.0 ml RENAL FUNCTION: GFR > 60. RADIATION DOSE: CT Rad equipment meets quality standard of care and radiation dose reduction techniq ues were employed. CTDIvol: 30.7 - 30.8 mGy. DLP: 3331 mGy-cm. LIMITATIONS: None. FINDINGS: LOWER CHEST: Solid noncalcified 6 mm nodule in the left lower lobe (image 6 of series 4) LIVER: The morphology of the liver is non cirrhotic. The portal veins are patent. There is no hepat ic mass. SPLEEN: No splenomegaly or splenic mass. PANCREAS: No acute abnormality of the pancreas. GALLBLADDER: The gallbladder is surgically absent. There is mild dilatation of the intrahepatic bile ducts. ADRENAL GLANDS: No mass or asymmetry. RIGHT KIDNEY AND URETER: No solid masses. No calcifications. No hydronephrosis or hydroureter. LEFT KIDNEY AND URETER: No solid masses. No calcifications. No hydronephrosis or hydroureter. AORTA AND VESSELS: No aneurysm or dissection of the abdominal aorta. RETROPERITONEUM: No retroperitoneal adenopathy, hemorrhage or mass. BOWEL AND PERITONEAL CAVITY: Cluster of non enlarged mesenteric lymph nodes at the root of the mesent maranda that measure up to 8 mm in short axis diameter. There is no bowel obstruction, bowel wall thicke polly or pericolonic/ perienteric inflammation. There is no free intraperitoneal fluid or mesenteric/ omental inflammation. APPENDIX: Surgical clip in the right lower quadrant adjacent to the appendiceal stump. PELVIS: The uterus is surgically absent. The urinary bladder is nondistended. ABDOMINAL WALL: Fat containing infraumbilical hernia. BONES: Schmorl's node at the superior endplate of L4. OTHER: No other finding. IMPRESSION: 1. No acute intra-abdominal abnormality. 2. Solid noncalcified 6 mm nodule in the left lower lobe. Attention on follow-up CTs is recommended. 3. Fat containing infraumbilical hernia. 4. Other findings as detailed above. TECHNICAL DOCUMENTATION: JOB ID: [id number] Quality ID # [id number]: Final reports with documentation of one or more dose reduction techniques (e.g., Au tomated exposure control, adjustment of the mA and/or kV according to patient size, use of iterative reconstruction technique) 2010 [employer]- All Rights Reserved Reading location - IP/workstation name: [email or web address]
== END ==
LOC: RAD 08:45
PROVIDERS: ATTEND Surgery
DX: K42.9 Umbilical hernia without obstruction or gangrene (principal); R10.9 Unspecified abdominal pain; R91.1 Solitary pulmonary nodule
CPT/HCPCS: 74177; 82565

== ENCOUNTER → 2020-01-13 | Outpatient (CLI) | payer MEDICAID ==
--- NOTE | 2020-01-13 13:26 | WOMENS IMAGING REPORT ---
EXAM DESCRIPTION: 3D SCREENING MAMMO BILAT IMAGES COMPLETED DATE/TIME: 01/13/2020 11:46 am REASON FOR STUDY: Z12.31 ENCOUNTER FOR SCREENING MAMMOGRAM FOR MALIGNANT NEOPLASM OF BREAST Z12.31 ENCNTR SCREEN MAMMOGRAM FOR MALIGNANT NEOPLASM OF ARIS COMPARISON: 2014, 2018 EXAM PARAMETERS: Views: Standard craniocaudal and mediolateral oblique views of each breast recorded using digital acquisition and breast tomosynthesis. Read with the assistance of CAD. .ON LICENSE OF [facility] - [employer]ing Machine Tender Version 9.2 LIMITATIONS: None. FINDINGS: No suspicious masses, suspicious calcifications or architectural distortion. No areas of c oncern. IMPRESSION: NEGATIVE MAMMOGRAM. BIRADS 1. BREAST DENSITY: b. There are scattered areas of fibroglandular density. BIRAD: ASSESSMENT: 1 NEGATIVE RECOMMENDATION: ROUTINE SCREENING COMMENT: The patient has been notified of the results by letter per MQSA requirements. Additional no tification policies are in place for contacting patient with suspicious or incomplete findings. Quality ID #225: The [employer] recommends an annual screening mammogram for women aged 40 years or over. This facility utilizes a reminder system to ensure that all patients receive reminder letters, and/or direct phone calls for appointments. This includes reminders for routine scr eening mammograms, diagnostic mammograms, or other Breast Imaging Interventions when appropriate. Th is patient will be placed in the appropriate reminder system. TECHNICAL DOCUMENTATION: FINDING NUMBER: (1) ASSESSMENT: (1) JOB ID: [id number] 2010 [employer]- All Rights Reserved Reading location - IP/workstation name: [email or web address]
== END ==
LOC: WI 10:36
PROVIDERS: ATTEND Physician Assistant
DX: Z12.31 Encounter for screening mammogram for malignant neoplasm of breast (principal)
CPT/HCPCS: 77063; 77067

== ENCOUNTER → 2020-04-19 | Outpatient (CLI) | payer MEDICAID ==
--- NOTE | 2020-04-19 12:48 | ER RDC ASSESSMENT REPORT ---
Intake - In the Last 14 days Have you traveled outside [place]?: No Have you been in close contact with someone CONFIRMED: Yes Worked in Healthcare?: No - Symptoms Subjective Fever([place] feverish): No Chills: No Muscule Aches: No Runny Nose: No Sore Throat: No Cough (New or worsening chronic cough): No Shortness of breath: No Nausea or Vomiting: No Headache: No Abdominal Pain: No Diarrhea(3 or more loose stools in last 24 hours): No - Do you have any of the following Chronic lung disease: Asthma or emphysema or COPD: No Cystic Fibrosis: No Diabetes: No High Blood Pressure: No Cardiovascular Disease: No Chronic Kidney Disease: No Chronic Liver Disease: No Chronic blood disorder like Sickle Cell Disease: No 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 that limits movement: Yes Developmental delay - Moderate to Severe: No Recent (within past 2 weeks) or current : No Morbid Obesity (>100 pounds over ideal weight): Yes - Objective Vital Signs: 5'6", 353 lb Temperature: 98.0 F Pulse Rate: 87 Respiratory Rate: 18 Blood Pressure: 149/56 O2 Sat by Pulse Oximetry: 96 Objective: Given above, testing performed: covid Disposition: Home; Selfcare General - General Stated Complaint: asymptomatic- post exposure covid testing Time Seen by Provider: 04/19/20 12:00 Mode of Arrival: Ambulatory Information source: Patient - HPI Notes: Patient presents to clinic for COVID-19 testing after coming in close contact with another COVID 19 positive individual. Patient is asymptomatic. They deny any cough, shortness of breath, fever, chills, muscle aches, rhinorrhea, sore throat, nausea or vomiting, headache, abdominal pain or diarrhea. Patient has no acute medical concerns. - Related Data Allergies/Adverse Reactions: cephalexin monohydrate [From Keflex] Allergy (Severe, Verified 08/17/19 07:15) Shortness of Breath dimenhydrinate [From Dramamine] Allergy (Severe, Verified 08/17/19 07:15) N AND V erythromycin ethylsuccinate [From E.E.S. Granules] Allergy (Severe, Verified 08/17/19 07:15) N AND V Latex, Natural Rubber Allergy (Severe, Verified 08/17/19 07:15) RASH meperidine HCl [From Demerol] Allergy (Severe, Verified 08/17/19 07:15) N AND V Penicillins Allergy (Severe, Verified 08/17/19 07:15) Shortness of Breath bee Allergy (Severe, Uncoded 08/17/19 07:15) Shortness of Breath Past Medical History - General Information source: Patient - Social History Smoking Status: Former Smoker Family History: Reviewed & Not Pertinent - Past Medical History Cardiac Medical History: Reports: Hx Coronary Artery Disease, Hx Heart Attack - 2001, Hx Hypertension - ON LASIX Pulmonary Medical History: Reports: None Denies: Hx Asthma, Hx Bronchitis, Hx COPD, Hx Pneumonia EENT Medical History: Reports: None Neurological Medical History: Reports: Hx Seizures - MILD TREMORS. Denies: Hx Cerebrovascular Accident Endocrine Medical History: Reports: None Renal/ Medical History: Reports: None. Denies: Hx Peritoneal Dialysis Malignancy Medical History: Reports: None GI Medical History: Reports: Hx Gastroesophageal Reflux Disease Musculoskeletal Medical History: Denies Hx Arthritis, Reports Hx Muscle Spasm Skin Medical History: Reports None Psychiatric Medical History: Reports: None Traumatic Medical History: Reports: None Infectious Medical History: Reports: None Past Surgical History: Reports: Hx Abdominal Surgery - lower intestine, Hx Cholecystectomy, Hx Hysterectomy, Hx Orthopedic Surgery - right knee/right hand Physical Exam - General General appearance: Appears well, Alert In distress: None Notes: PHYSICAL EXAMINATION: GENERAL: Well-appearing and in no acute distress. HEAD: Atraumatic, normocephalic. EYES: sclera anicteric, conjunctiva are normal. ENT: nares patent. Moist mucous membranes. NECK: Normal range of motion, supple without lymphadenopathy. LUNGS: No increased work of breathing. Lung sounds CTAB and equal. No wheezes rales or rhonchi. HEART: Regular rate and rhythm without murmurs. ABDOMEN: Soft, nontender, normal bowel sounds, no guarding. EXTREMITIES: Normal range of motion, no pitting edema. No cyanosis. NEUROLOGICAL: A&O x 3. Normal speech. PSYCH: Normal mood, normal affect. SKIN: Warm, Dry, normal turgor, no rashes or lesions noted Patient Education/Counseling Counseling/Education: Patient presents for COVID 19 testing after close exposure to another person who has tested positive for COVID 19. Patient is asymptomatic at this time. Patient does not have emergency worrying symptoms such as difficulty breathing, shortne ss of breath, chest pain, pressure, confusion or cyanosis. Patient appears suitable for discharge as vital signs are stable and patient is nontoxic in appearance. Good return precautions have been discussed with patient, patient verbalized understanding and is agreeable with discharge plan of care at this time. Guidance for worsening S/SX: As a person under investigation for Covid 19, the [facility], division of public health advises you to adhere to the following guidance until your test results are reported to you. If your test result is positive, you will receive additional information from your provider and your local health department at that time. Remain at home until you are cleared by the health provider or public health authorities. Keep a log of visitors to your home, notify any visitors to your home of your isolation status. If you plan to move to a new address or leave the county, notify the local health department in your County. Call your doctor or seek care if you have an urgent medical need. Before seeking medical care, call ahead to get instructions from the provider before arriving at the medical office clinic or hospital. Notify them that you are being tested for the virus that causes Covid 19 so that arrangements can be made, as necessary, to prevent transmission to others in the healthcare setting. Next, notify the local health department in your county. If a medical emergency arises and you need to call 911, inform the first responders that you are being tested for the virus that causes Covid 19. Next, notify the local health department in your county. RDC Discharge - Discharge Clinical Impression: Encounter for screening laboratory testing for COVID-19 virus Condition: Good Disposition: Home; Selfcare
[2020-04-19 12:52] VITALS: BP 149/56
== END ==
LOC: RDC 11:10
PROVIDERS: ATTEND Registered Nurse
DX: Z03.818 Encounter for observation for suspected exposure to other biological agents ruled out (principal)
CPT/HCPCS: 87635; C9803; 99201; 99211

== ENCOUNTER → 2020-05-03 | Outpatient (CLI) | payer MEDICAID ==
--- NOTE | 2020-05-03 15:32 | RADIOLOGY REPORT (SQ) ---
EXAM DESCRIPTION: CT CHEST WITH IMAGES COMPLETED DATE/TIME: 05/03/2020 3:07 pm REASON FOR STUDY: R91.1 SOLITARY PULMONARY NODULE R91.1 SOLITARY PULMONARY NODULE COMPARISON: CT abdomen and pelvis dated 10/12/2019 TECHNIQUE: CT scan of the chest performed using helical scanning technique with dynamic intravenous contrast injection. Images reviewed with lung, soft tissue and bone windows. Reconstructed coronal and sagittal MPR and MIP images reviewed. All images stored on PACS. All CT scanners at this facility use dose modulation, iterative reconstruction, and/or weight based d osing when appropriate to reduce radiation dose to as low as reasonably achievable (ALARA). [facility]: Dose Right [facility]: CareDose [facility]: Dose Right [facility]: Teradose 4D [facility]: Consumer Agent Portal (CAP) CONTRAST TYPE AND DOSE: contrast/concentration: Isovue 350.00 mmol/ml; Total Contrast Delivered: 80. 0 ml; Total Saline Delivered: 45.0 ml RENAL FUNCTION: Creatinine 0.8 RADIATION DOSE: CT Rad equipment meets quality standard of care and radiation dose reduction techniq ues were employed. CTDIvol: 23.2 mGy. DLP: 936 mGy-cm. . LIMITATIONS: None. FINDINGS: LUNGS AND PLEURA: Re- demonstration of a 5 x 4 x 4 mm subpleural pulmonary nodule within t he left lower lobe (axial image 76, coronal reformat 72). No additional nodules or masses. No pleur al effusion. No pneumothorax. HILAR AND MEDIASTINAL STRUCTURES: Mildly prominent appearing precarinal lymph node measures 14 mm in the short axis. HEART AND VASCULAR STRUCTURES: No aneurysm or dissection. No central pulmonary emboli. No pericardi al effusion. HARDWARE: None in the chest. UPPER ABDOMEN: No significant findings. Limited exam. THYROID AND OTHER SOFT TISSUES: Enlarged, heterogeneous appearing thyroid gland extends into the retr osternal superior mediastinum. BONES: No significant finding. OTHER: No other significant finding. IMPRESSION: 1. Stable appearance of a 5 x 4 x 4 mm subpleural pulmonary nodule within the left lowe r lobe. Recommend risk stratification and follow-up imaging in accordance with current Fleischner so ciety guidelines. 2. Diffusely enlarged, heterogeneous appearance of the thyroid gland. Recommend correlation with la boratory evaluation. COMMENT: FLEISCHNER CRITERIA FOR FOLLOW-UP OF PULMONARY NODULES Incidentally detected new nodules in persons 35 or older. HIGH RISK: History of smoking or other known risk factors. <6 mm single solid nodule: LOW RISK: no routine followup. HIGH RISK: optional CT 12 mo. TECHNICAL DOCUMENTATION: JOB ID: [id number] Quality ID # [id number]: Final reports with documentation of one or more dose reduction techniques (e.g., Au tomated exposure control, adjustment of the mA and/or kV according to patient size, use of iterative reconstruction technique) 2010 [employer]- All Rights Reserved Reading location - IP/workstation name: [email or web address]
== END ==
LOC: RAD 13:53
PROVIDERS: ATTEND Surgery
DX: R91.1 Solitary pulmonary nodule (principal)
CPT/HCPCS: 71260; 82565

== ENCOUNTER 2020-05-31 01:36 | Emergency (ER) | payer MEDICAID ==
--- NOTE | 2020-05-31 01:51 | ER Document Report ---
ED General - General Chief Complaint: Fall Stated Complaint: LEFT LOWER BACK PAIN Time Seen by Provider: 05/31/20 01:50 Primary Care Provider: ELENI WOMACK MD [ACTIVE PROVISIONAL STAFF] - Follow up as needed TRAVEL OUTSIDE OF THE [place] IN LAST 30 DAYS: No - HPI Notes: 55-year-old female presents with left hip pain. Patient states that she had a fall from standing. She states that she had gone out to buy some cigarettes, as she was walking down a sturdy stoop, she accidentally stepped onto her 's foot while holding his hand. This caused him to jerk her away, causing her to fall and landed on top of him. She states that she landed onto her tailbone and then onto her left hip. She reports extreme pain and notes that she has a very high pain tolerance. She has not tried to ambulate. Touching the area makes it worse. She states that she was told that her pelvic girdle would shatter if she had any injuries. She has a history of fibromyalgia and lymphedema. On further discussion patient states that she hit her head, did not have a loss of consciousness. She denies use of blood thinners but states she is on several medications that could thin her blood. - Related Data Allergies/Adverse Reactions: cephalexin monohydrate [From Keflex] Allergy (Severe, Verified 08/17/19 07:15) Shortness of Breath dimenhydrinate [From Dramamine] Allergy (Severe, Verified 08/17/19 07:15) N AND V erythromycin ethylsuccinate [From E.E.S. Granules] Allergy (Severe, Verified 08/17/19 07:15) N AND V Latex, Natural Rubber Allergy (Severe, Verified 08/17/19 07:15) RASH meperidine HCl [From Demerol] Allergy (Severe, Verified 08/17/19 07:15) N AND V Penicillins Allergy (Severe, Verified 08/17/19 07:15) Shortness of Breath bee Allergy (Severe, Uncoded 08/17/19 07:15) Shortness of Breath Past Medical History - General Information source: Patient - Social History Smoking Status: Unknown if Ever Smoked Family History: Reviewed & Not Pertinent - Past Medical History Cardiac Medical History: Reports: Hx Coronary Artery Disease, Hx Heart Attack - 2001, Hx Hypertension - ON LASIX Pulmonary Medical History: Denies: Hx Asthma, Hx Bronchitis, Hx COPD, Hx Pneumonia Neurological Medical History: Reports: Hx Seizures - MILD TREMORS. Denies: Hx Cerebrovascular Accident Renal/ Medical History: Denies: Hx Peritoneal Dialysis GI Medical History: Reports: Hx Gastroesophageal Reflux Disease Musculoskeletal Medical History: Denies Hx Arthritis, Reports Hx Muscle Spasm Past Surgical History: Reports: Hx Abdominal Surgery - lower intestine, Hx Cholecystectomy, Hx Hysterectomy, Hx Orthopedic Surgery - right knee/right hand - Immunizations Hx Diphtheria, Pertussis, Tetanus Vaccination: Yes Review of Systems - Review of Systems Constitutional: No symptoms reported EENT: No symptoms reported Cardiovascular: No symptoms reported Respiratory: No symptoms reported Gastrointestinal: No symptoms reported Genitourinary: No symptoms reported Female Genitourinary: No symptoms reported Musculoskeletal: See HPI Skin: No symptoms reported Hematologic/Lymphatic: No symptoms reported Neurological/Psychological: denies: Weakness, Numbness Physical Exam - Vital signs Vitals: Temp 98.6 F 05/31/20 01:43 - General General appearance: Appears well, Alert - HEENT Head: Normocephalic, Atraumatic Extraocular movements intact: Yes Pupils: PERRL Notes: Full range of motion, no midline tenderness - Respiratory Chest status: Nontender Breath sounds: Normal - Cardiovascular Rhythm: Regular - Abdominal Inspection: Morbidly Obese Tenderness: Nontender - Extremities Notes: Some limitation in exam due to patient's body habitus and participation exam, she appears to have some tenderness over the left pelvis/outer thigh - Neurological Neuro grossly intact: Yes Cognition: Normal Orientation: AAOx4 Motor strength normal: LUE, RUE, LLE, RLE Sensory: Normal - Psychological Associated symptoms: Normal affect - Skin Skin Temperature: Warm Course - Re-evaluation Re-evalutation: 55-year-old female morbidly obese had a fall from standing, now has pain to her left hip and lower back. There is some limitation in exam, does appear to have some tenderness to the generalized left pelvic area, x-rays ordered to evaluate. She also reports hitting her head, she has no signs of head trauma, no C-spine tenderness, however will obtain CT head and C-spine to officially rule out traumatic injury. She is neurologically intact. Fentanyl for pain. 05/31/20 04:20 Images and report reviewed. Per radiology no intracranial hemorrhage, no C- spine fracture, no left hip fracture, no lumbar fracture. Patient seen sitting up in stretcher 05/31/20 04:22 Patient reports improvement in her pain. She was updated on results. She requested additional dose of pain medication for her travel home, will order dose of [place]. Return precautions given, stable time discharge. - Vital Signs Vital signs: Temp Pulse Resp BP Pulse Ox 97.9 F 81 18 133/67 H 94 05/31/20 04:41 05/31/20 04:41 05/31/20 04:41 05/31/20 04:41 05/31/20 04:41 Discharge - Discharge Clinical Impression: Left hip pain Fall from standing Qualifiers: Encounter type: initial encounter Qualified Code(s): W19.XXXA - Unspecified fall, initial encounter Disposition: HOME, SELF-CARE Additional Instructions: Continue all home medications as prescribed. Return to the emergency department for any concerning worsening symptoms. Referrals: ELENI WOMACK MD [ACTIVE PROVISIONAL STAFF] - Follow up as needed
[2020-05-31] MEDS ORDERED: FENTANYL CITRATE INJ/PF 100 MCG/2 ML AMPUL IV ONE (02:00)
--- NOTE | 2020-05-31 03:18 | RADIOLOGY REPORT (SQ) ---
INDICATION: fall, pain. COMPARISON: None CORRELATION: None TECHNIQUE: Noncontrast spiral axial CT images were obtained from the skull base to vertex. Noncontrast spiral axial CT imaging through the cervical spine with multiplanar reconstructions. This exam was performed according to our departmental dose-optimization program, which includes automated exposure control, adjustment of the mA and/or kV according to patient size and/or use of iterative reconstruction techniques. FINDINGS: BRAIN: There is no evidence of acute intracranial hemorrhage, midline shift, mass effect or mass lesion. Burt-white differentiation is normal. There is no evidence of acute large territory infarct. Ventricles and extracerebral spaces are within normal limits, for age. The visualized paranasal sinuses demonstrate retention cyst left maxillary sinus. The orbits and eyeballs are unremarkable. The mastoid air cells are clear. Skull base and calvarium appear intact. Poor dentition. Fractured tooth which appears be the left second premolar within the maxilla with associated periodontal disease. CERVICAL SPINE: No acute displaced fracture is identified of the cervical spine. Reversal the normal cervical lordosis perhaps due to positioning or spasm. Vertebral body heights are well-maintained. The uncovertebral joints and facets demonstrate osteoarthritis. Surrounding soft tissues of the neck are unremarkable. IMPRESSION: Imaging is degraded by patient motion, with resultant artifact. The best possible images were obtained. No acute intracranial process is identified. No acute bony injury is seen to the cervical spine.
--- NOTE | 2020-05-31 03:20 | RADIOLOGY REPORT (SQ) ---
INDICATION: fall, pain. TECHNIQUE: 7 view(s) of the lumbar spine. Both obliques COMPARISON: None FINDINGS: No evidence of acute displaced fracture. Levoconvex scoliosis. No anteroposterior subluxation. The facets and intervertebral joints are within normal limits for age. Vertebral body heights are well-maintained. The lumbosacral junction is not well seen. IMPRESSION: No evidence of acute displaced fracture of the lumbar spine.
--- NOTE | 2020-05-31 03:33 | RADIOLOGY REPORT (SQ) ---
CLINICAL INDICATION: fall, pain. . TECHNIQUE: 2 view(s) were obtained of the left hip. AP pelvis COMPARISON: None. FINDINGS: No acute displaced fracture is identified of the hip. Alignment appears anatomic. Osteoarthritis. Surrounding soft tissues are unremarkable. IMPRESSION: No evidence of acute displaced fracture of the hip.
[2020-05-31] MEDS ORDERED: HYDROCODONE/ACETAMINOPHEN 5-325 MG TABLET PO ONE (04:22)
[2020-05-31 04:41] VITALS: BP 133/67
== END 2020-05-31 05:07 | disposition home or self-care (01) ==
LOC: ER 01:36
DX: M25.552 Pain in left hip (principal); M54.5 Low back pain; W19.XXXA Unspecified fall, initial encounter; F17.210 Nicotine dependence, cigarettes, uncomplicated; Z88.0 Allergy status to penicillin; Z88.1 Allergy status to other antibiotic agents; Z88.8 Allergy status to other drugs, medicaments and biological substances; I25.10 Atherosclerotic heart disease of native coronary artery without angina pectoris; I25.2 Old myocardial infarction; I10 Essential (primary) hypertension; Z79.899 Other long term (current) drug therapy
CPT/HCPCS: 99285; 96374; 73502; 72110; 70450; 72125; J3010

== ENCOUNTER 2020-07-20 07:38 | Day surgery (SDC) | payer MEDICAID ==
[~2020-07-20 07:38] MED LIST changes: +CHONDR SU A NA/HYALUR INTRAOC KIT (SURGICARE) ONE; +EPINEPHRINE INJ/PF 1 MG/1 ML AMPULE ONE; +KETOROLAC TROMETHAMINE 0.45% 4 DROP/0.4 ML DROPERETTE OD PRN; +LIDOCAINE 1%/PHENYLEPHRINE 1.5% 1 ML VIAL ONE; -REGADENOSON INJ 0.4 MG/5 ML DISP.SYRIN IV ONE
[2020-07-20] MEDS ORDERED: ONDANSETRON HCL INJ/PF 4 MG/2 ML SDV ONE (07:58)
[2020-07-20] MEDS ORDERED: FENTANYL CITRATE INJ/PF 100 MCG/2 ML AMPUL ONE (07:58)
[2020-07-20] MEDS ORDERED: MIDAZOLAM 2 MG/2 ML INJ ONE (07:58)
[2020-07-20] MEDS: BESIFLOXACIN HCL 0.6% OPH SUSP 5 ML BOTTLE OD PRN ×4 (08:19→09:11)
[2020-07-20] MEDS: CYCLOPENTOLATE 0.2%/PHENYLEPHRINE 1% OPH SOLN 2 ML OD PRN ×3 (08:19→08:39)
[2020-07-20] MEDS: TROPICAMIDE 1% OPH SOLN 15 ML OD PRN ×3 (08:19→08:39)
[2020-07-20] MEDS: TETRACAINE HCL 0.5% OPH SOLN 4 ML OD PRN ×3 (08:20→08:53)
[2020-07-20] MEDS: DORZOLAMIDE HCL 2%/TIMOLOL MALEAT 0.5% OPH SOLN 10 ML OD PRN ×2 (09:11)
[2020-07-20] MEDS: PREDNISOLONE ACETATE 1% OPH SUSP 5 ML OD PRN ×2 (09:11)
--- NOTE | 2020-07-20 13:09 | Operative Report ---
Operative Report-[facility] Operative Report: DATE OF SURGERY: July 20, 2020 PREOPERATIVE DIAGNOSIS: NUCLEAR CATARACT, RIGHT EYE. POSTOPERATIVE DIAGNOSIS: NUCLEAR CATARACT, RIGHT EYE. PROCEDURE PERFORMED: PHACOEMULSIFICATION WITH POSTERIOR CHAMBER INTRAOCULAR LENS IMPLANT, RIGHT EYE. SURGEON: Luis Angel Merlos DO MEDICATIONS AND ANESTHESIA: Versed: IV Versed Tetracaine drops: 1 to 2 drops given as needed COMPLICATION: None INDICATIONS FOR SURGERY: Medical necessity: Best corrected visual acuity worse than 20/40 secondary to cataracts with impairment of ability to carry out needs or desired activities, blurred vision, visual distortion, reduced contrast sensitivity and/or glare with association functional impairment and supporting documentation/testing, and cataracts causing symptomatic impairment of visual functions not corrected with tolerable changes in glasses or contact lenses interfering with activities of daily life. PROCEDURE: Consent: The risks, benefits and alternatives of this procedures was discussed with the patient. The patient read and signed the consent forms, was identified and was seated in the exam chair. IOL: MX 60 E 24.0 IOL Diopters: Phacoemulsification with posterior chamber intraocular lens implant: The face was prepped with 5% povidone iodine solution, and a few drops of 5% povidone iodine solution was instilled into the inferior fornix. A non-fenestrated drape was placed over the eye and the lids were parted with the speculum. A paracentesis was made with a 15 degree blade, and 1% lidocaine MPF followed by viscoelastic was injected into the anterior chamber. A 2.4 mm metal micro- keratome was used to create a temporal clear corneal incision. A circular anterior capsulorrhexis was created, followed by hydro-dissection and hydro- delineation. The phacoemulsification hand piece was inserted and the nucleus was removed with the Phaco chop technique. The irrigation-aspiration hand piece was used to remove the residual cortex, and vacuum the posterior capsule. The capsular bag was inflated and viscoelastic and the above-mentioned IOL was injected into the eye with care to insert both leaning and trailing haptics in the capsular bag. The irrigation/aspiration hand piece was reinserted to remove residual viscoelastic from the capsular bag and anterior chamber. The corneal incision was hydrated, and anterior chamber was inflated with sterile BSS via the paracentesis site, and found to be watertight. Postop medication: 1 drop of prednisolone into operative by followed by 1 drop of Cosopt into operative eye followed by 1 drop of Besivance intraoperative by other:
== END 2020-07-20 09:51 | disposition home or self-care (01) ==
LOC: SC 07:38
PROVIDERS: ATTEND Ophthalmology
DX: H25.11 Age-related nuclear cataract, right eye (principal); R73.03 Prediabetes; Z79.84 Long term (current) use of oral hypoglycemic drugs; M19.90 Unspecified osteoarthritis, unspecified site; I89.0 Lymphedema, not elsewhere classified; M79.7 Fibromyalgia; G47.33 Obstructive sleep apnea (adult) (pediatric); E66.01 Morbid (severe) obesity due to excess calories; I25.2 Old myocardial infarction
CPT/HCPCS: 66984; 82962; 00142; V2632; J2250; J3490 ×3; J0171; J3010; J2405; 142

== ENCOUNTER 2020-08-03 09:01 | Day surgery (SDC) | payer MEDICAID ==
[~2020-08-03 09:01] MED LIST changes: -KETOROLAC TROMETHAMINE 0.45% 4 DROP/0.4 ML DROPERETTE OD PRN; +KETOROLAC TROMETHAMINE 0.45% 4 DROP/0.4 ML DROPERETTE OS PRN
[2020-08-03] MEDS: CYCLOPENTOLATE 0.2%/PHENYLEPHRINE 1% OPH SOLN 2 ML OS PRN ×3 (09:20→09:40)
[2020-08-03] MEDS: BESIFLOXACIN HCL 0.6% OPH SUSP 5 ML BOTTLE OS PRN ×4 (09:20→10:07)
[2020-08-03] MEDS: TROPICAMIDE 1% OPH SOLN 15 ML OS PRN ×3 (09:20→09:40)
[2020-08-03] MEDS: TETRACAINE HCL 0.5% OPH SOLN 4 ML OS PRN ×3 (09:21→09:51)
[2020-08-03] MEDS ORDERED: FENTANYL CITRATE INJ/PF 100 MCG/2 ML AMPUL ONE (09:33)
[2020-08-03] MEDS ORDERED: MIDAZOLAM 2 MG/2 ML INJ ONE (09:33)
[2020-08-03] MEDS: PREDNISOLONE ACETATE 1% OPH SUSP 5 ML OS PRN ×2 (10:07)
[2020-08-03] MEDS: DORZOLAMIDE HCL 2%/TIMOLOL MALEAT 0.5% OPH SOLN 10 ML OS PRN ×2 (10:07)
--- NOTE | 2020-08-03 12:39 | Operative Report ---
Operative Report-[facility] Operative Report: DATE OF SURGERY: August 03, 2020 PREOPERATIVE DIAGNOSIS: NUCLEAR CATARACT, LEFT EYE. POSTOPERATIVE DIAGNOSIS: NUCLEAR CATARACT, LEFT EYE. PROCEDURE PERFORMED: PHACOEMULSIFICATION WITH POSTERIOR CHAMBER INTRAOCULAR LENS IMPLANT, LEFT EYE. SURGEON: Lius Angel Merlos DO MEDICATIONS AND ANESTHESIA: Versed: IV Versed Tetracaine drops: 1 to 2 drops given as needed COMPLICATION: None INDICATIONS FOR SURGERY: Medical necessity: Best corrected visual acuity worse than 20/40 secondary to cataracts with impairment of ability to carry out needs or desired activities, blurred vision, visual distortion, reduced contrast sensitivity and/or glare with association functional impairment and supporting documentation/testing, and cataracts causing symptomatic impairment of visual functions not corrected with tolerable changes in glasses or contact lenses interfering with activities of daily life. PROCEDURE: Consent: The risks, benefits and alternatives of this procedures was discussed with the patient. The patient read and signed the consent forms, was identified and was seated in the exam chair. IOL: MX 60 E 24.0 IOL Diopters: Phacoemulsification with posterior chamber intraocular lens implant: The face was prepped with 5% povidone iodine solution, and a few drops of 5% povidone iodine solution was instilled into the inferior fornix. A non-fenestrated drape was placed over the eye and the lids were parted with the speculum. A paracentesis was made with a 15 degree blade, and 1% lidocaine MPF followed by viscoelastic was injected into the anterior chamber. A 2.4 mm metal micro- keratome was used to create a temporal clear corneal incision. A circular anterior capsulorrhexis was created, followed by hydro-dissection and hydro- delineation. The phacoemulsification hand piece was inserted and the nucleus was removed with the Phaco chop technique. The irrigation-aspiration hand piece was used to remove the residual cortex, and vacuum the posterior capsule. The capsular bag was inflated and viscoelastic and the above-mentioned IOL was injected into the eye with care to insert both leaning and trailing haptics in the capsular bag. The irrigation/aspiration hand piece was reinserted to remove residual viscoelastic from the capsular bag and anterior chamber. The corneal incision was hydrated, and anterior chamber was inflated with sterile BSS via the paracentesis site, and found to be watertight. Postop medication:1 drop of prednisolone into operative by followed by 1 drop of Cosopt into operative eye followed by 1 drop of Besivance intraoperative by Other:
== END 2020-08-03 10:46 | disposition home or self-care (01) ==
LOC: SC 09:01
PROVIDERS: ATTEND Ophthalmology
DX: H25.12 Age-related nuclear cataract, left eye (principal); Z98.41 Cataract extraction status, right eye; M19.90 Unspecified osteoarthritis, unspecified site; R73.03 Prediabetes; Z79.84 Long term (current) use of oral hypoglycemic drugs; Z72.0 Tobacco use
CPT/HCPCS: 66984; 82962; V2632; J2250; J3490 ×3; J0171; J3010

== ENCOUNTER → 2020-09-02 | Outpatient (CLI) | payer MEDICAID ==
[2020-09-02 17:37] LABS: ABSOLUTE LYMPHOCYTES (AUTO) 1.7 10^3/uL (0.5-4.7); ABSOLUTE MONOCYTES (AUTO) 0.3 10^3/uL (0.1-1.4); ABSOLUTE NEUT (AUTO) 5.1 10^3/uL (1.7-8.2); BASOPHILS % (AUTO) 0.6 % (0-2); EOSINOPHILS % (AUTO) 0.4 % (0-6); HEMATOCRIT 34.8 % (36.0-47.0); HEMOGLOBIN 11.4 g/dL (12.0-15.5); LYMPHOCYTES % (AUTO) 24.1 % (13-45); MEAN CORPUSCULAR HEMOGLOBIN 22.4 pg (27.0-33.4); MEAN CORPUSCULAR HGB CONC 32.7 g/dL (32.0-36.0); MEAN CORPUSCULAR VOLUME 69 fl (80-97); MONOCYTES % (AUTO) 4.7 % (3-13); PLATELET COUNT 261 10^3/uL (150-450); RED BLOOD COUNT 5.07 10^6/uL (3.72-5.28); RED CELL DISTRIBUTION WIDTH 17.4 % (11.5-14.0); SEGMENTED NEUTROPHILS % (AUTO) 70.2 % (42-78); TOTAL CELLS COUNTED % (AUTO) 100 %; WHITE BLOOD COUNT 7.2 10^3/uL (4.0-10.5)
[2020-09-02 18:19] LABS: ERYTHROCYTE SEDIMENTATION RATE 42 mm/hr (0-30)
== END ==
LOC: OD 16:31
PROVIDERS: ATTEND Orthopaedic Surgery
DX: L02.512 Cutaneous abscess of left hand (principal)
CPT/HCPCS: 36415; 85025; 85652; 86140